=== PATIENT | female | born 1985 | race Hispanic/Latino ===

== ENCOUNTER 2018-03-09 16:07 | Emergency (ER) | payer BC ==
[2018-03-09] MEDS ORDERED: METOCLOPRAMIDE 10 MG/2 ML VIAL ONE (17:08)
[2018-03-09] MEDS ORDERED: DiphenhydrAMINE HCL 50 MG/ML VIAL ONE (17:08)
[2018-03-09] MEDS ORDERED: ONDANSETRON HCL 4 MG/2 ML VIAL ONE (17:08)
[2018-03-09] MEDS ORDERED: MORPHINE SULFATE 2 MG/ML 1ML SYG ONE ×2 (17:09→18:08)
[2018-03-09] MEDS ORDERED: SODIUM CHLORIDE 0.9% 100 ML IV ONE (17:09)
== END 2018-03-09 18:52 | disposition home or self-care (01) ==
LOC: EDH 16:07
DX: T78.49XA Other allergy, initial encounter (principal); G43.909 Migraine, unspecified, not intractable, without status migrainosus; Z91.013 Allergy to seafood; X58.XXXA Exposure to other specified factors, initial encounter
CPT/HCPCS: 96374; 96375; 96376; 99284; J1200; J2405; J2765

== ENCOUNTER 2024-04-22 15:30 | Observation (INO) | payer BC ==
[~2024-04-22] VITALS: Ht 162.6 cm; Wt 106.4 kg
[2024-04-22] MEDS ORDERED: 1/2 NS 1000ML 1,000 ML IV SCH (16:00)
[2024-04-22] MEDS ORDERED: KETOROLAC 30MG VIAL (30MG/ML) IVP PRN (16:00)
[2024-04-22] MEDS ORDERED: KETOROLAC 30MG VIAL (30MG/ML) IVP ONE (16:00)
[2024-04-22] MEDS ORDERED: DIPHENHYDRAMINE HCL 25 MG CAPSULE PO PRN (16:00)
[2024-04-22] MEDS ORDERED: ACETAMINOPHEN 325 MG TAB PO PRN (16:00)
[2024-04-22] MEDS ORDERED: ZOSYN 3.375GM +NS 50ML IV SCH (16:00)
[2024-04-22] MEDS ORDERED: 0.9%NACL 1000ML 1,000 ML IV ONE (16:00)
[2024-04-22] MEDS ORDERED: FAMOTIDINE 20MG TAB PO ONE (16:00)
[2024-04-22 16:04] LABS: APPEARANCE,URINE CLEAR (CLEAR); BILIRUBIN,URINE NEGATIVE (NEGATIVE); COLOR,URINE LIGHT-YELLOW (YELLOW); GLUCOSE, URINE (UA) NEGATIVE (NEGATIVE); KETONES,URINE NEGATIVE (NEGATIVE); LEUKOCYTE ESTERASE ,URINE NEGATIVE Leu/uL (NEGATIVE); NITRATE,URINE NEGATIVE (NEGATIVE); OCCULT BLOOD,URINE NEGATIVE (NEGATIVE); PROTEIN,URINE 30 mg/dL (NEGATIVE); UROBILINOGEN,URINE 0.2 mg/dL (0.2-1.0)
[2024-04-22 16:12] LABS: ADD UA MICROSCOPIC YES; BACTERIA,URINE RARE /HPF (None Seen); OTHER CASTS, URINE 1 /LPF (None Seen); SQUAMOUS EPITHELIAL CELL,UR FEW /HPF (0-2)
[2024-04-22 16:53] LABS: CREATININE 0.7 mg/dL (0.5-1.0); POTASSIUM 3.6 mmol/L (3.5-5.1)
[2024-04-22 16:57] LABS: ALBUMIN 3.6 g/dL (3.5-5.0); BILIRUBIN,DIRECT 0.2 mg/dL (0.0-0.3); BILIRUBIN,TOTAL 0.8 mg/dL (0.2-1.0); TOTAL PROTEIN, SERUM 7.8 g/dL (6.0-8.3)
[2024-04-22] MEDS ORDERED: GUAIFENESIN-DM 200/20 MG 10 ML PO PRN (17:00)
[2024-04-22] MEDS ORDERED: ZOLPIDEM TARTRATE 5 MG TAB PO PRN (17:00)
[2024-04-22] MEDS ORDERED: MAG/ALUM/SIMETH 30 ML UDCUP PO PRN (17:00)
[2024-04-22] MEDS: 1/2 NS 1000ML 1,000 ML IV SCH (17:18)
[2024-04-22] MEDS ORDERED: IOHEXOL 350 MG/ML 100ML INFUS..BTL IV ONE (17:18)
[2024-04-22 17:37] LABS: HEMATOCRIT 42.1 % (36-48); MEAN CORPUSCULAR HEMOGLOBIN 28.7 pg (27.0-33.0); MEAN CORPUSCULAR HGB CONC 34.7 g/dL (32.0-36.0); MEAN CORPUSCULAR VOLUME 82.9 fL (79-99); PLATELET COUNT (AUTO) 265 K/uL (130-400); RED BLOOD CELL COUNT(AUTO) 5.08 MIL/uL (4.00-5.50); WHITE BLOOD COUNT (AUTO) 8.3 K/uL (4.8-10.8)
[2024-04-22 17:43] LABS: BASOPHILS # (AUTO) 0.06 K/uL (0.00-0.20); BASOPHILS % (AUTO) 0.7 % (0.0-5.0); EOSINOPHILS # (AUTO) 0.28 K/uL (0.00-0.70); EOSINOPHILS % (AUTO) 3.4 % (0.0-8.0); IMMATURE GRANULOCYTE ABSOLUTE 0.03 K/uL (0-1); LYMPHOCYTES # (AUTO) 2.1 K/uL (1.0-4.8); MONOCYTES # (AUTO) 0.6 K/uL (0.1-1.0); MONOCYTES % (AUTO) 6.9 % (3.0-13.0); NEUTROPHILS # (AUTO) 5.3 K/uL (1.8-7.7); NEUTROPHILS % (AUTO) 63.6 % (40.0-77.0)
[2024-04-22] MEDS ORDERED: METO100T14 PO (20:22)
[2024-04-22] MEDS ORDERED: LISI10TA24 PO (20:22)
[2024-04-22] MEDS ORDERED: METF-446 PO (20:22)
[2024-04-22] MEDS: FAMOTIDINE 20MG VIAL IV SCH (20:36)
[2024-04-22] MEDS: ZOSYN 3.375GM +NS 50ML IV SCH (20:36)
[2024-04-22] MEDS: KETOROLAC 30MG VIAL (30MG/ML) IVP PRN (20:36)
[2024-04-22] MEDS: ENOXAPARIN SODIUM 30 MG/0.3 ML SQ SCH (20:37)
[2024-04-22] MEDS ORDERED: FAMOTIDINE 20MG TAB PO SCH (21:00)
[2024-04-22] MEDS ORDERED: METRONIDAZOLE 500MG/100ML BAG 100 ML IVPB SCH (22:00)
[2024-04-22] MEDS: METRONIDAZOLE 500MG/100ML BAG 100 ML IVPB SCH (22:06)
[2024-04-22 22:51] VITALS: O2SAT 97
[2024-04-22] MEDS: INSULIN HUMULIN R 100 UNIT/ML 3ML SQ SCH (23:52)
[2024-04-23 00:10] VITALS: BP 150/103; PULSE 78; RESP 18
[2024-04-23] MEDS ORDERED: RIME75TA PO (00:40)
[2024-04-23] MEDS: DiphenhydrAMINE HCL 50 MG/ML VIAL IV PRN (00:45)
[2024-04-23] MEDS: HYDRALAZINE 20MG/ML VIAL IV ONE (01:01)
[2024-04-23 04:00] VITALS: BP 132/81; PULSE 82; RESP 18
[2024-04-23 05:06] LABS: BASOPHILS # (AUTO) 0.05 K/uL (0.00-0.20); BASOPHILS % (AUTO) 0.7 % (0.0-5.0); EOSINOPHILS # (AUTO) 0.26 K/uL (0.00-0.70); EOSINOPHILS % (AUTO) 3.6 % (0.0-8.0); HEMATOCRIT 35.6 % (36-48); IMMATURE GRANULOCYTE ABSOLUTE 0.03 K/uL (0-1); LYMPHOCYTES # (AUTO) 2.4 K/uL (1.0-4.8); LYMPHOCYTES % (AUTO) 32.4 % (21.0-51.0); MEAN CORPUSCULAR HEMOGLOBIN 28.1 pg (27.0-33.0); MEAN CORPUSCULAR HGB CONC 34.8 g/dL (32.0-36.0); MEAN CORPUSCULAR VOLUME 80.5 fL (79-99); MONOCYTES # (AUTO) 0.7 K/uL (0.1-1.0); MONOCYTES % (AUTO) 9.8 % (3.0-13.0); NEUTROPHILS # (AUTO) 3.9 K/uL (1.8-7.7); NEUTROPHILS % (AUTO) 53.1 % (40.0-77.0); PLATELET COUNT (AUTO) 216 K/uL (130-400); RED BLOOD CELL COUNT(AUTO) 4.42 MIL/uL (4.00-5.50); RED CELL DISTRIBUTION WIDTH 13.8 % (11.0-15.5); WHITE BLOOD COUNT (AUTO) 7.3 K/uL (4.8-10.8)
[2024-04-23 05:23] LABS: CREATININE 0.7 mg/dL (0.5-1.0); POTASSIUM 3.1 mmol/L (3.5-5.1)
[2024-04-23] MEDS: INSULIN HUMULIN R 100 UNIT/ML 3ML SQ SCH (07:30)
[2024-04-23 08:00] VITALS: BP 129/87; PULSE 92; RESP 20
[2024-04-23] MEDS: METOPROLOL TARTRATE 50 MG TAB PO SCH (08:02)
[2024-04-23] MEDS: LISINOPRIL 10 MG TABLET PO SCH (08:02)
[2024-04-23] MEDS: ACETAMINOPHEN 325 MG TAB PO PRN (08:02)
== END 2024-04-23 09:20 | disposition home or self-care (01) ==
LOC: EDH 15:30 → INTOOBSV 16:28 → EDHIP 16:28 → 3DH 23:48
PROVIDERS: ADMIT Internal Medicine; ATTEND Internal Medicine
DX: R10.31 Right lower quadrant pain (principal); E11.9 Type 2 diabetes mellitus without complications; I10 Essential (primary) hypertension; Z90.710 Acquired absence of both cervix and uterus; Z90.49 Acquired absence of other specified parts of digestive tract; Z79.899 Other long term (current) drug therapy; Z98.890 Other specified postprocedural states
CPT/HCPCS: 99285; 74177; 96365; 96361; 96366 ×2; 96375 ×2; 96368; 80076; 80048 ×2; 83690; 85025 ×2; 87040; 82948 ×3; 81001; 36415 ×2; 96376; J3490 ×4; J1650 ×2; J1885 ×2; J2543 ×2; Q9967; G0378; J1200; J0360